=== PATIENT | female | born 1960 | race Caucasian/White ===

== ENCOUNTER 2016-12-11 12:31 | Inpatient (IN) | payer BC ==
[~2016-12-11] VITALS: Ht 170.2 cm; Wt 98.2 kg
[2016-12-11] MEDS ORDERED: ALBUT/IPRATROP 3MG/0.5MG NEB 3 ML VIAL INH STA (12:58)
[2016-12-11] MEDS ORDERED: METHYLPREDNISOLONE 125 MG VIAL IV STA (12:58)
[2016-12-11 13:24] LABS: BASO % 0.2 %; BASO ABS # 0.02 K/uL (0-0.2); COMPLETE YES; EOS % 1.7 %; HEMATOCRIT 44.7 % (37-47); IG% 0.3 %; LYMPH % 33.9 %; LYMPH ABS # 2.92 K/uL (1.2-3.4); MEAN CORPUSCULAR HEMOGLOBIN 32.8 pg (25-34); MEAN CORPUSCULAR HGB CONC 33.8 g/dl (32-36); MEAN PLATELET VOLUME 8.8 fL (7.4-10.4); MONO % 6.7 %; NEUT % 57.2 %; PLATELET COUNT 338 K/uL (130-400); RED BLOOD COUNT 4.61 M/uL (4.2-5.4); WHITE BLOOD COUNT 8.61 K/uL (4.8-10.8)
--- NOTE | 2016-12-11 14:00 | DIAGNOSTIC IMAGING REPORT ---
TWO VIEW CHEST CLINICAL HISTORY: Cough and dyspnea. FINDINGS: PA and lateral chest radiographs are obtained. No prior studies are available for comparison at the time of dictation. The examination is degraded by large body habitus. The right lateral lung base was excluded. The cardiomediastinal silhouette is unremarkable. Nonspecific interstitial thickening is noted. The lungs and pleural spaces are clear. There is no pneumothorax. The skeletal structures are osteopenic. The bony thorax appears intact. Surgical clips are seen in the left axilla. IMPRESSION: No active disease in the chest. Electronically signed by: Parker Núñez M.D. 12/11/2016 1:58 PM Dictated Date/Time: 12/11/2016 1:57 PM
[2016-12-11 14:19] LABS: BUN/CREATININE RATIO 11.2 (10-20); CALCIUM 9.2 mg/dl (8.5-10.1); CREATININE 0.92 mg/dl (0.60-1.20); POTASSIUM 4.1 mmol/L (3.5-5.1)
[2016-12-11] MEDS ORDERED: ALBUT/IPRATROP 3MG/0.5MG NEB 3 ML VIAL INH ONE (14:30)
[2016-12-11] MEDS ORDERED: VNTHFA/IN INH (14:46)
[2016-12-11] MEDS ORDERED: PHEN-905 PO (14:48)
[2016-12-11 15:04] VITALS: PULSE 75; O2SAT 89
[2016-12-11] MEDS ORDERED: ONDANSETRON INJ 2 MG/ML 2 ML VIAL IV PRN (17:15)
[2016-12-11] MEDS ORDERED: MAGNESIUM HYDROXIDE SUSP 30 ML UDC PO PRN (17:15)
[2016-12-11 17:20] VITALS: O2SAT 90; Ht 170.2 cm; Wt 98.2 kg
--- NOTE | 2016-12-11 17:23 | History and Physical ---
History & Physical Date & Time of Service: Dec 11, 2016 at 17:14 Chief Complaint: COUGH Primary Care Physician: Raleigh Wadsworth D.O. History of Present Illness Source: patient, spouse 56 y/o F c/o SOB. Pt has been getting progressively SOB since last or Friday. It was mostly with ambulation prior, but now it is happening at rest at times as well. Her states "you can hear her like a fright train coming". She has had a productive cough. Pt was given an albuterol inhaler in the past when she was dx with "bronchitis" and states that she tried to use this , but it wasn't helping. She states that her and daughter both recently had "bronchitis". No chest pain. She states this is much worse than when she was dx with bronchitis in the past. She has never been hospitalized for her breathing. She has been eating without issue. Pt denies fever, abd pain, n/v/c/d, LE pain or swelling. Pt feels less SOB at rest s/p nebs, steroids, O2. ROS as noted above, otherwise neg. Past Medical/Surgical History Denies current medications or health issues or prior hospitalizations Social History Smoking Status: Current Every Day Smoker (1ppd) Alcohol Use: occasionally Drug Use: none Allergies Coded Allergies: Penicillins (Unverified Allergy, Unknown, DOESN'T REMEMBER, SHE WAS A SMALL CHILD, 12/11/16) Home Medications Scheduled Rtqdbbggagvls-Bvtugpnsor-Bgdki (Nyquil Severe Cold/Flu 5-6.25-10-325 mg/15Ml), 15 ML PO DAILY Scheduled PRN Albuterol Hfa (Ventolin Hfa), 1-2 PUFFS INH Q4H PRN for Shortness of Breath Physical Exam Vital Signs Date Time Temp Pulse Resp B/P Pulse Ox O2 Delivery O2 Flow Rate FiO2 12/11/16 16:13 93 28 155/144 93 Nasal Cannula 4.0 12/11/16 16:12 85 Room Air 12/11/16 15:04 75 18 89 Room Air 12/11/16 14:14 77 16 168/91 90 Room Air 12/11/16 13:29 88 20 161/90 95 Nebulizer 12/11/16 13:10 91 Room Air 12/11/16 12:38 92 Room Air 12/11/16 12:34 36.7 86 22 174/86 91 Room Air General Appearance: WD/WN, no apparent distress Head: normocephalic, atraumatic Respiratory/Chest: no respiratory distress, + wheezing (diffuse, expiratory) Cardiovascular: regular rate, rhythm, no edema Abdomen/GI: non tender, soft Extremities/Musculoskelatal: no calf tenderness, no pedal edema Neurologic/Psych: alert, oriented x 3 Skin: normal color, warm/dry Diagnostics Laboratory Results Results Past 24 Hours Test 12/11/16 13:00 12/11/16 13:10 Range/Units White Blood Count 8.61 4.8-10.8 K/uL Red Blood Count 4.61 4.2-5.4 M/uL Hemoglobin 15.1 12.0-16.0 g/dL Hematocrit 44.7 37-47 % Mean Corpuscular Volume 97.0 80-100 fL Mean Corpuscular Hemoglobin 32.8 25-34 pg Mean Corpuscular Hemoglobin Concent 33.8 32-36 g/dl Platelet Count 338 130-400 K/uL Mean Platelet Volume 8.8 7.4-10.4 fL Neutrophils (%) (Auto) 57.2 % Lymphocytes (%) (Auto) 33.9 % Monocytes (%) (Auto) 6.7 % Eosinophils (%) (Auto) 1.7 % Basophils (%) (Auto) 0.2 % Neutrophils # (Auto) 4.91 1.4-6.5 K/uL Lymphocytes # (Auto) 2.92 1.2-3.4 K/uL Monocytes # (Auto) 0.58 0.11-0.59 K/uL Eosinophils # (Auto) 0.15 0-0.5 K/uL Basophils # (Auto) 0.02 0-0.2 K/uL RDW Standard Deviation 50.6 36.4-46.3 fL RDW Coefficient of Variation 14.2 11.5-14.5 % Immature Granulocyte % (Auto) 0.3 % Immature Granulocyte # (Auto) 0.03 0.00-0.02 K/uL Sodium Level 140 136-145 mmol/L Potassium Level 4.1 3.5-5.1 mmol/L Chloride Level 105 98-107 mmol/L Carbon Dioxide Level 29 21-32 mmol/L Anion Gap 6.0 3-11 mmol/L Blood Urea Nitrogen 10 7-18 mg/dl Creatinine 0.92 0.60-1.20 mg/dl Est Creatinine Clear Calc Drug Dose 81.2 ml/min Estimated GFR () 80.1 Estimated GFR (Non- 69.1 BUN/Creatinine Ratio 11.2 10-20 Random Glucose 101 70-99 mg/dl Calcium Level 9.2 8.5-10.1 mg/dl CXR normal Impression Assessment and Plan 56 y/o F who was admitted on 12/11 for SOB. 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 Y/N: Yes Risk Level: Low
[2016-12-11 17:54] LABS: PARTIAL THROMBOPLASTIN RATIO 1.2; PROTHROMBIN TIME (PATIENT) 10.3 SECONDS (9.0-12.0)
[2016-12-11 18:25] VITALS: BP 151/81; PULSE 94; TEMP 36.8; O2SAT 90
[2016-12-11] MEDS ORDERED: NICOTINE 21 MG/24 HR TDSY TD PRN (19:00)
[2016-12-11 20:00] VITALS: PULSE 80; O2SAT 94
[2016-12-11] MEDS: ALBUT/IPRATROP 3MG/0.5MG NEB 3 ML VIAL INH SCH (20:00)
[2016-12-11 20:01] VITALS: BP 153/93; PULSE 98; TEMP 36.8; O2SAT 92
[2016-12-11] MEDS: ENOXAPARIN 40 MG/0.4 ML SYR SQ SCH (20:55)
[2016-12-11] MEDS ORDERED: NICOTINE 21 MG/24 HR TDSY TD SCH (21:00)
[2016-12-11] MEDS: METHYLPREDNISOLONE IV 40 MG in SYRINGE 0 ML IV SCH (21:04)
--- NOTE | 2016-12-11 21:13 | EMERGENCY ROOM VISIT NOTE ---
History First contact with patient: 12:51 Chief Complaint: COUGH Stated Complaint: COPD Nursing Triage Summary: having breathing troubles since last friday. family had bronchitis recently History of Present Illness The patient is a 56 year old female who presents to the Emergency Room with complaints of difficulty breathing for the past one week. The patient states that she has had a productive cough, wheezing and shortness of breath for the past one week. She states that family members have had bronchitis and she believes this is what is wrong with her. She states she does have inhalers at home and has been using without relief. She has a nebulizer but states she does not have any albuterol for the nebulizer. She smokes over a pack a day but states that she does not have any chronic lung disease. She took 2 days worth of doxycycline, which she had at home from a previous prescription. She denies chest pain, nausea, vomiting or fevers. Review of Systems A complete 10-point Review of Systems was discussed with the patient, with pertinent positives and negatives listed in the History of Present Illness. All remaining Review of Systems questions can be considered negative unless otherwise specified. Past Medical/Surgical History Medical Problems: (1) COPD (chronic obstructive pulmonary disease) Social History Smoking Status: Current Every Day Smoker (1ppd) Drug Use: none Current/Historical Medications Scheduled Nmsrcbsjxxuvb-Vzbrygwtmd-Woati (Nyquil Severe Cold/Flu 5-6.25-10-325 mg/15Ml), 15 ML PO DAILY Scheduled PRN Albuterol Hfa (Ventolin Hfa), 1-2 PUFFS INH Q4H PRN for Shortness of Breath Allergies Coded Allergies: Penicillins (Unverified Allergy, Unknown, DOESN'T REMEMBER, SHE WAS A SMALL CHILD, 12/11/16) Physical Exam Vital Signs Date Time Temp Pulse Resp B/P Pulse Ox O2 Delivery O2 Flow Rate FiO2 12/11/16 17:11 88 17 92 12/11/16 17:06 89 18 89 12/11/16 17:01 98 19 95 12/11/16 16:56 90 21 88 12/11/16 16:51 94 16 89 12/11/16 16:46 93 21 91 12/11/16 16:41 92 35 92 12/11/16 16:39 170/123 12/11/16 16:30 170/123 12/11/16 16:13 93 28 155/144 93 Nasal Cannula 4.0 12/11/16 16:12 85 Room Air 12/11/16 15:04 75 18 89 Room Air 12/11/16 14:14 77 16 168/91 90 Room Air 12/11/16 13:29 88 20 161/90 95 Nebulizer 12/11/16 13:10 91 Room Air 12/11/16 12:38 92 Room Air 12/11/16 12:34 36.7 86 22 174/86 91 Room Air Pain Rating (0-10): 0 Physical Exam VITALS: Vitals are noted on the nurse's note and reviewed by myself. Vital signs stable. GENERAL: This is a 56-year-old female, in no acute distress, nondiaphoretic, well-developed well-nourished. SKIN: Capillary reflex less than 2 seconds. HEENT: Normocephalic. PERRLA. EOMI. Nares patent. Mucous membranes moist. Neck is supple without nuchal rigidity. HEART: Regular rate and rhythm without murmurs gallops or rubs. LUNGS: Diffuse inspiratory and expiratory wheezes. Conversational dyspnea noted. ABDOMEN: Positive bowel sounds x 4. Soft, nontender to palpation. NEURO: Patient was alert and oriented to person place and time. Medical Decision & Procedures ER Provider Diagnostic Interpretation: TWO VIEW CHEST CLINICAL HISTORY: Cough and dyspnea. FINDINGS: PA and lateral chest radiographs are obtained. No prior studies are available for comparison at the time of dictation. The examination is degraded by large body habitus. The right lateral lung base was excluded. The cardiomediastinal silhouette is unremarkable. Nonspecific interstitial thickening is noted. The lungs and pleural spaces are clear. There is no pneumothorax. The skeletal structures are osteopenic. The bony thorax appears intact. Surgical clips are seen in the left axilla. IMPRESSION: No active disease in the chest. Laboratory Results 12/11/16 13:10 Red Blood Count 4.61, Mean Corpuscular Volume 97.0, Mean Corpuscular Hemoglobin 32.8, Mean Corpuscular Hemoglobin Concent 33.8, Mean Platelet Volume 8.8, Neutrophils (%) (Auto) 57.2, Lymphocytes (%) (Auto) 33.9, Monocytes (%) (Auto) 6.7, Eosinophils (%) (Auto) 1.7, Basophils (%) (Auto) 0.2, Neutrophils # (Auto) 4.91, Lymphocytes # (Auto) 2.92, Monocytes # (Auto) 0.58, Eosinophils # (Auto) 0.15, Basophils # (Auto) 0.02 12/11/16 13:10 Test 12/11/16 13:00 12/11/16 13:10 White Blood Count 8.61 K/uL (4.8-10.8) Red Blood Count 4.61 M/uL (4.2-5.4) Hemoglobin 15.1 g/dL (12.0-16.0) Hematocrit 44.7 % (37-47) Mean Corpuscular Volume 97.0 fL (80-100) Mean Corpuscular Hemoglobin 32.8 pg (25-34) Mean Corpuscular Hemoglobin Concent 33.8 g/dl (32-36) Platelet Count 338 K/uL (130-400) Mean Platelet Volume 8.8 fL (7.4-10.4) Neutrophils (%) (Auto) 57.2 % Lymphocytes (%) (Auto) 33.9 % Monocytes (%) (Auto) 6.7 % Eosinophils (%) (Auto) 1.7 % Basophils (%) (Auto) 0.2 % Neutrophils # (Auto) 4.91 K/uL (1.4-6.5) Lymphocytes # (Auto) 2.92 K/uL (1.2-3.4) Monocytes # (Auto) 0.58 K/uL (0.11-0.59) Eosinophils # (Auto) 0.15 K/uL (0-0.5) Basophils # (Auto) 0.02 K/uL (0-0.2) RDW Standard Deviation 50.6 fL (36.4-46.3) RDW Coefficient of Variation 14.2 % (11.5-14.5) Immature Granulocyte % (Auto) 0.3 % Immature Granulocyte # (Auto) 0.03 K/uL (0.00-0.02) Prothrombin Time 10.3 SECONDS (9.0-12.0) Prothromb Time International Ratio 1.0 (0.9-1.1) Activated Partial Thromboplast Time 30.3 SECONDS (21.0-31.0) Partial Thromboplastin Ratio 1.2 Anion Gap 6.0 mmol/L (3-11) Est Creatinine Clear Calc Drug Dose 81.2 ml/min Estimated GFR () 80.1 Estimated GFR (Non- 69.1 BUN/Creatinine Ratio 11.2 (10-20) Calcium Level 9.2 mg/dl (8.5-10.1) Medications Administered Medications (Trade) Dose Ordered Sig/Jorje Route Start Time Stop Time Status Last Admin Dose Admin Albuterol/ Ipratropium (Duoneb) 3 ml NOW STAT INH 12/11/16 12:58 12/11/16 13:01 DC 12/11/16 13:06 3 ML Methylprednisolone Sodium Succinate (Solu-Medrol IV) 125 mg NOW STAT IV 12/11/16 12:58 12/11/16 13:01 DC 12/11/16 13:06 125 MG Albuterol/ Ipratropium (Duoneb) 12 ml ONE ONCE INH 12/11/16 14:30 12/11/16 14:31 DC 12/11/16 15:03 12 ML ED Course The patient was evaluated as above. Labs were drawn and IV access was obtained. Patient was medicated with a DuoNeb treatment and 125 mg Solu-Medrol. Patient was reevaluated and had continued wheezing. She reported very little relief. Patient was given an hour-long DuoNeb. On reevaluation, she still had diffuse wheezing and oxygen saturation was 85% on room air. The patient was placed on 2 L via nasal cannula. Case was discussed with the [facility] hospitalist, Dr. Herring. They agreed to evaluate the patient for admission. Medical Decision Differential diagnosis includes influenza, pneumonia, COPD exacerbation, upper respiratory infection, pulmonary embolism, among others. The patient is a 56-year-old female who presents today complaining of cough and difficulty breathing. Labs revealed no leukocytosis, anemia or concerning electrolyte abnormalities. Influenza was ordered and was pending. Chest x-ray was unremarkable. The patient received an initial DuoNeb treatment as well as an hour-long DuoNeb treatment. She received 125 mg Solu-Medrol IV. She had very little relief from these treatments and continued to have diffuse wheezing. She was hypoxic with an O2 saturation of 85-90% throughout her stay. While the patient does deny any history of COPD, I feel she likely has a component of COPD given her history of heavy smoking. As the patient had continued symptoms and was hypoxic , I did choose to admit her for further evaluation and care. The patient's case was reviewed with Dr. Stevenson, ED attending physician, who agreed with my assessment and treatment plan. Impression Primary Impression: Respiratory distress Additional Impression: Hypoxia Departure Information Dispostion Admitted as an inpatient Condition FAIR Referrals Raleigh Wadsworth D.O. (PCP) Forms HOME CARE DOCUMENTATION FORM, IMPORTANT VISIT INFORMATION Patient Instructions My [facility] Problem Qualifiers
[2016-12-11 23:44] VITALS: BP 192/94; PULSE 89; TEMP 36.7; O2SAT 94
[2016-12-12] VITALS (11 sets, daily range): BP systolic 137–183; BP diastolic 75–116; PULSE 82–96; TEMP 36.4–36.9; O2SAT 90–96
[2016-12-12] MEDS ORDERED: HydrALAZINE HCL 20 MG/ML VIAL ONE (00:24)
[2016-12-12] MEDS: ACETAMINOPHEN 325 MG TAB PO PRN ×2 (04:47→13:05)
[2016-12-12] MEDS ORDERED: PNEUMOCOCCAL ADMINISTRATION CHARGE ONE (05:15)
[2016-12-12] MEDS ORDERED: PNEUMOCOCCAL POLYSACCHARIDES 25 MCG/0.5 ML VIAL/SYR IM. ONE (05:15)
[2016-12-12] MEDS: ALBUT/IPRATROP 3MG/0.5MG NEB 3 ML VIAL INH SCH ×4 (05:55→19:10)
[2016-12-12] MEDS: HydrALAZINE HCL 20 MG/ML VIAL IV. PRN (07:47)
[2016-12-12] MEDS: METHYLPREDNISOLONE IV 40 MG in SYRINGE 0 ML IV SCH (09:04)
--- NOTE | 2016-12-12 19:59 | Progress Note ---
Subjective Date of Service: Dec 12, 2016. Subjective Pt evaluation today including: conversation w/ patient, conversation w/ family , physical exam, chart review, lab review, review of studies, review of inpatient medication list Pain: denies PO Intake: good Voiding: no voiding problems 56-year-old female admitted yesterday with COPD exacerbation. The patient actually does not carry such a diagnosis but her presentation combined with smoking history seemed to suggest that this was a COPD exacerbation. The patient does tell me today that she's had prior upper respiratory infections that have been treated with inhalers, although she does not take inhalers on a routine basis. Today, her breathing is somewhat easier. Unfortunately she has been hypertensive; she blames some of this on the steroids although I suspect there is some underlying hypertension as well. She is not frequent her family physician so there really is no baseline with regards to her blood pressure. Problem List Medical Problems: (1) Hypoxia Status: Acute (2) Respiratory distress Status: Acute Review of Systems Constitutional: No chills, No fever ENT: No nasal symptoms, No sore throat Respiratory: + cough, + wheezing, No dyspnea at rest, No shortness of breath Cardiac: No chest pain Abdomen: No nausea, No pain Female : No dysuria All Other Systems: Reviewed and Negative Objective Vital Signs Date Time Temp Pulse Resp B/P Pulse Ox O2 Delivery O2 Flow Rate FiO2 12/12/16 19:41 89 169/89 12/12/16 19:10 82 18 91 Room Air 12/12/16 16:22 88 18 96 Room Air 3.0 12/12/16 16:00 Room Air 12/12/16 15:10 36.9 93 22 137/75 90 12/12/16 12:00 Room Air 12/12/16 11:59 88 18 96 Room Air 3.0 12/12/16 08:00 Room Air 12/12/16 07:11 36.4 96 22 182/114 91 Room Air 176/116 12/12/16 05:55 86 18 95 Nasal Cannula 3.0 12/12/16 01:39 95 170/95 12/12/16 00:30 91 183/96 12/12/16 00:00 Nasal Cannula 4.0 12/11/16 23:44 36.7 89 18 192/94 94 Nasal Cannula 4.0 12/11/16 20:01 36.8 98 18 153/93 92 Nasal Cannula 5.0 12/11/16 20:00 80 18 94 Nasal Cannula 3.0 Physical Exam General Appearance: WD/WN (she is seated in bed talking to family.), no apparent distress Eyes: normal inspection, PERRL, EOMI ENT: normal ENT inspection, hearing grossly normal Neck: supple, no adenopathy Respiratory/Chest: chest non-tender, no respiratory distress, + pertinent finding (no focal findings. There is some end expiratory wheeze and a prolonged expiratory phase.) Cardiovascular: regular rate, rhythm, no edema, no gallop Abdomen: normal bowel sounds, non tender, soft Extremities: normal range of motion, non-tender, normal inspection Neurologic/Psychiatric: no motor/sensory deficits, alert, normal mood/affect, oriented x 3 Skin: normal color, warm/dry Assessment and Plan 56-year-old female admitted with shortness of breath and likely COPD exacerbation. Shortness of breath with hypoxia COPD exacerbation Patient does not carry this diagnosis, however strongly suggested based on her clinical exam and tobacco abuse history. She seems improved today We'll change to by mouth steroids tomorrow. She'll need probably function test as an outpatient. Hypertension I suspect there is some baseline hypertension exaggerated by the COPD exacerbation and perhaps the IV steroids. Add lisinopril 20 mg this evening Continue hydralazine IV when necessary Tobacco use nicotine patch PRN Smoking cessation ordered Other: Full code Reg diet Lovenox for DVT proph
[2016-12-12] MEDS: LISINOPRIL/HCTZ 10/12.5MG TAB PO SCH (20:51)
[2016-12-12] MEDS: ENOXAPARIN 40 MG/0.4 ML SYR SQ SCH (20:51)
[2016-12-13] VITALS (8 sets, daily range): BP systolic 112–138; BP diastolic 71–82; PULSE 76–84; TEMP 36.6–36.7; O2SAT 90–94
[2016-12-13] MEDS: LISINOPRIL/HCTZ 10/12.5MG TAB PO SCH (07:30)
[2016-12-13] MEDS: NICOTINE 21 MG/24 HR TDSY TD SCH (07:31)
[2016-12-13] MEDS: ALBUT/IPRATROP 3MG/0.5MG NEB 3 ML VIAL INH SCH ×4 (07:45→19:25)
--- NOTE | 2016-12-13 11:39 | Progress Note ---
Subjective Date of Service: Dec 13, 2016. Subjective Pt evaluation today including: conversation w/ patient, physical exam, chart review, review of inpatient medication list Pain: denies PO Intake: good Voiding: no voiding problems This morning she notes some increased difficulty in terms of her breathing. She feels a little tighter and more wheezy compared to last night. Unfortunately her blood pressure is much improved. She did walk down the [place] to the shower last evening and when she returned she noted herself to be short of breath. She denies shortness of breath at rest. She continues to have a cough, largely nonproductive Problem List Medical Problems: (1) Hypoxia Status: Acute (2) Respiratory distress Status: Acute Review of Systems Constitutional: No chills, No fever Respiratory: + cough, + dyspnea on exertion, + shortness of breath, + wheezing , No dyspnea at rest Cardiac: No chest pain Abdomen: No pain Female : No dysuria Endo: No fatigue All Other Systems: Reviewed and Negative Medications Acetaminophen (Tylenol Tab) 650 mg Q4H PRN PO Last administered on 12/12/16 13:05; Admin Dose 650 MG; Start 12/11/16 at 17:15; Stop 01/10/17 at 17:14 Albuterol/ Ipratropium (Duoneb) 3 ml QIDR INH Last administered on 12/13/16 11: 18; Admin Dose 3 ML; Start 12/11/16 at 20:00; Stop 01/10/17 at 19:59 Enoxaparin Sodium (Lovenox Inj) 40 mg Q24H SQ; Start 12/11/16 at 21:00; Stop at 20:59 HCTZ/Lisinopril (Prinzide 10-12.5MG Tab) 1 tab QAM PO Last administered on 07:30; Admin Dose 1 TAB; Start 12/12/16 at 20:00; Stop 01/11/17 at 19:59 Hydralazine HCl (HydrALAZINE INJ) 10 mg Q4H PRN IV. Last administered on 07:47; Admin Dose 10 MG; Start 12/11/16 at 23:45; Stop 01/10/17 at 23:44 Magnesium Hydroxide (Milk Of Magnesia Susp) 30 ml Q6H PRN PO; Start 12/11/16 at 17:15; Stop 01/10/17 at 17:14 Miscellaneous (Remove Nicoderm Patch) 1 ea HS N/A Last administered on 20:51; Admin Dose 1 EA; Start 12/12/16 at 21:00; Stop 01/11/17 at 20:59 Nicotine (Nicoderm Cq 21MG Patch) 1 patch QAM TD Last administered on 12/13/16 07:31; Admin Dose 1 PATCH; Start 12/13/16 at 09:00; Stop 01/12/17 at 08:59 Ondansetron HCl (Zofran Inj) 4 mg Q6H PRN IV; Start 12/11/16 at 17:15; Stop at 17:14 Prednisone (PredniSONE TAB) 40 mg QAM PO Last administered on 12/13/16 07:30; Admin Dose 40 MG; Start 12/13/16 at 09:00; Stop 01/12/17 at 08:59 Objective Vital Signs Date Time Temp Pulse Resp B/P Pulse Ox O2 Delivery O2 Flow Rate FiO2 12/13/16 11:18 82 18 94 Room Air 12/13/16 08:00 90 Room Air 12/13/16 07:45 82 18 94 Room Air 12/13/16 07:29 36.6 76 16 118/71 90 12/13/16 00:06 36.7 79 18 138/82 93 Room Air 12/13/16 00:00 Room Air 12/12/16 23:10 82 18 91 Room Air 12/12/16 20:53 92 147/83 12/12/16 20:00 Room Air 12/12/16 19:41 89 169/89 12/12/16 19:10 82 18 91 Room Air 12/12/16 16:22 88 18 96 Room Air 3.0 12/12/16 16:00 Room Air 12/12/16 15:10 36.9 93 22 137/75 90 12/12/16 12:00 Room Air 12/12/16 11:59 88 18 96 Room Air 3.0 Physical Exam General Appearance: WD/WN, no apparent distress Eyes: normal inspection ENT: normal ENT inspection, hearing grossly normal Neck: supple, no adenopathy, thyroid normal Respiratory/Chest: + wheezing (x-ray for wheezing in all zambrano, in comparison to my exam last evening, overall decreased air movement) Cardiovascular: regular rate, rhythm, no edema Abdomen: normal bowel sounds, non tender, soft Extremities: normal range of motion, non-tender, normal inspection Neurologic/Psychiatric: no motor/sensory deficits, alert, normal mood/affect, oriented x 3 Skin: normal color Assessment and Plan Shortness of breath with hypoxia COPD exacerbation Patient does not carry this diagnosis, however strongly suggested based on her clinical exam and tobacco abuse history. Objective seems a little worse today compared to yesterday. She was feeling better and there is concern that the IV steroids were exacerbating her blood pressure, so decided to change to by mouth steroids this morning. We'll change back to IV steroids; reassess in a.m. She'll need pulmonary function testing as an outpatient. Hypertension Marked improvement with addition of Zestoretic 10/12.5. Check BMP in a.m. Continue hydralazine IV when necessary, especially with resuming of IV steroids Tobacco use nicotine patch PRN Smoking cessation ordered Other: Full code Reg diet Lovenox for DVT proph Continued [facility] stay due to: multiple IV medications needed (needs IV steroids) Discharge planning: home
[2016-12-13] MEDS: ACETAMINOPHEN 325 MG TAB PO PRN (13:33)
[2016-12-13] MEDS: METHYLPREDNISOLONE IV 40 MG in SYRINGE 0 ML IV SCH ×2 (13:35→21:00)
[2016-12-13] MEDS: ENOXAPARIN 40 MG/0.4 ML SYR SQ SCH (19:18)
[2016-12-14] VITALS (11 sets, daily range): BP systolic 130–193; BP diastolic 67–99; PULSE 69–88; TEMP 36.5–36.8; O2SAT 90–95
[2016-12-14] MEDS: ALBUT/IPRATROP 3MG/0.5MG NEB 3 ML VIAL INH SCH ×2 (00:55→07:59)
[2016-12-14] MEDS: METHYLPREDNISOLONE IV 40 MG in SYRINGE 0 ML IV SCH ×3 (05:36→21:28)
[2016-12-14] MEDS: HydrALAZINE HCL 20 MG/ML VIAL IV. PRN (07:32)
[2016-12-14] MEDS: NICOTINE 21 MG/24 HR TDSY TD SCH (07:34)
[2016-12-14 07:35] LABS: BASO % 0.1 %; BASO ABS # 0.01 K/uL (0-0.2); COMPLETE YES; EOS % 0.1 %; HEMATOCRIT 43.5 % (37-47); IG% 0.4 %; LYMPH ABS # 1.72 K/uL (1.2-3.4); MEAN CELL VOLUME 95.6 fL (80-100); MEAN CORPUSCULAR HEMOGLOBIN 32.3 pg (25-34); MEAN CORPUSCULAR HGB CONC 33.8 g/dl (32-36); MEAN PLATELET VOLUME 8.7 fL (7.4-10.4); MONO % 4.6 %; NEUT % 83.8 %; PLATELET COUNT 359 K/uL (130-400); RED BLOOD COUNT 4.55 M/uL (4.2-5.4)
[2016-12-14 07:58] LABS: BUN/CREATININE RATIO 17.5 (10-20); CALCIUM 9.1 mg/dl (8.5-10.1); CREATININE 0.71 mg/dl (0.60-1.20); POTASSIUM 3.7 mmol/L (3.5-5.1)
[2016-12-14] MEDS: LISINOPRIL/HCTZ 10/12.5MG TAB PO SCH (08:15)
--- NOTE | 2016-12-14 09:50 | Family Medicine Progress Note ---
Progress Note Date of Service Dec 14, 2016. Subjective Pt seen and examined at bedside. Overnight, feels that she had significant improvement re: breathing back on the IV steroids but w/ considerable agitation and increase in BP per nursing. This morning, is anxious to be discharged, but feels that she only really turned around after going back on IV steroids. Reports less wheezing and SOB, and is able to ambulate farther now than previous. Nonproductive cough is stable. Reports no fever, CP/palpitations, n/v/ d/c, reflux, CROSS, lightheadedness. Constitutional: No chills, No fatigue, No fever, No sweats Respiratory: + cough, + dyspnea at rest, + dyspnea on exertion, + shortness of breath, + wheezing Cardiovascular: No chest pain, No edema, No palpitations Abdomen: No diarrhea, No nausea, No pain, No vomiting Medications Current Inpatient Medications Medications (Trade) Dose Ordered Sig/Jorje Route Start Time Stop Time Status Last Admin Dose Admin Enoxaparin Sodium (Lovenox Inj) 40 mg Q24H SQ 12/11/16 21:00 01/10/17 20:59 Acetaminophen (Tylenol Tab) 650 mg Q4H PRN PO 12/11/16 17:15 01/10/17 17:14 12/13/16 13:33 650 MG Magnesium Hydroxide (Milk Of Magnesia Susp) 30 ml Q6H PRN PO 12/11/16 17:15 01/10/17 17:14 Ondansetron HCl (Zofran Inj) 4 mg Q6H PRN IV 12/11/16 17:15 01/10/17 17:14 Albuterol/ Ipratropium (Duoneb) 3 ml QIDR INH 12/11/16 20:00 12/14/16 11:59 12/14/16 00:55 3 ML Hydralazine HCl (HydrALAZINE INJ) 10 mg Q4H PRN IV. 12/11/16 23:45 01/10/17 23:44 12/14/16 07:32 10 MG Nicotine (Nicoderm Cq 21MG Patch) 1 patch QAM TD 12/13/16 09:00 01/12/17 08:59 12/14/16 07:34 1 PATCH Miscellaneous (Remove Nicoderm Patch) 1 ea HS N/A 12/12/16 21:00 01/11/17 20:59 12/13/16 19:19 1 EA HCTZ/Lisinopril 1 tab 1 tab QAM PO 12/12/16 20:00 01/11/17 19:59 12/14/16 08:15 1 TAB Methylprednisolone Sodium Succinate/ Syringe (Solu-Medrol IV/ Syringe) 0.64 ml @ 1.5 mls/min Q8 IV 12/13/16 14:00 01/12/17 13:59 12/14/16 05:36 1.5 MLS/MIN Albuterol/ Ipratropium (Combivent Respimat Inh) 1 puffs QID INH 12/14/16 13:00 01/13/17 12:59 Objective Vital Signs Date Time Temp Pulse Resp B/P Pulse Ox O2 Delivery O2 Flow Rate FiO2 12/14/16 08:00 Room Air 12/14/16 07:59 88 18 95 Room Air 12/14/16 07:30 36.5 78 20 193/82 94 12/14/16 00:55 77 16 93 Room Air 12/14/16 00:14 36.8 82 20 168/96 90 Room Air 12/14/16 00:00 Room Air 12/13/16 20:00 Room Air 12/13/16 19:25 84 16 92 Room Air 12/13/16 16:00 Room Air 12/13/16 16:00 79 16 90 Room Air 12/13/16 15:21 36.6 82 16 112/73 90 12/13/16 11:18 82 18 94 Room Air Physical Exam General Appearance: WD/WN, + mild distress (agitation and SOB w/ speaking) Eyes: normal inspection, PERRL, EOMI ENT: normal ENT inspection, hearing grossly normal, pharynx normal Neck: supple, no adenopathy, thyroid normal Respiratory/Chest: chest non-tender, + respiratory distress (mild, more with speaking for extended periods), + decreased breath sounds (throughout, worse at the bases), + wheezing (mostly apical, but w/ decreased BS at bases, so likely too tight to wheeze) Cardiovascular: regular rate, rhythm, no edema, no gallop, no murmur Abdomen: normal bowel sounds, non tender, soft, no organomegaly Laboratory Results 12/14/16 06:55 Red Blood Count 4.55, Mean Corpuscular Volume 95.6, Mean Corpuscular Hemoglobin 32.3, Mean Corpuscular Hemoglobin Concent 33.8, Mean Platelet Volume 8.7, Neutrophils (%) (Auto) 83.8, Lymphocytes (%) (Auto) 11.0, Monocytes (%) (Auto) 4.6, Eosinophils (%) (Auto) 0.1, Basophils (%) (Auto) 0.1, Neutrophils # (Auto) 13.17, Lymphocytes # (Auto) 1.72, Monocytes # (Auto) 0.72, Eosinophils # (Auto) 0.01, Basophils # (Auto) 0.01 12/14/16 06:55 Test 12/14/16 06:55 White Blood Count 15.70 K/uL (4.8-10.8) Red Blood Count 4.55 M/uL (4.2-5.4) Hemoglobin 14.7 g/dL (12.0-16.0) Hematocrit 43.5 % (37-47) Mean Corpuscular Volume 95.6 fL (80-100) Mean Corpuscular Hemoglobin 32.3 pg (25-34) Mean Corpuscular Hemoglobin Concent 33.8 g/dl (32-36) Platelet Count 359 K/uL (130-400) Mean Platelet Volume 8.7 fL (7.4-10.4) Neutrophils (%) (Auto) 83.8 % Lymphocytes (%) (Auto) 11.0 % Monocytes (%) (Auto) 4.6 % Eosinophils (%) (Auto) 0.1 % Basophils (%) (Auto) 0.1 % Neutrophils # (Auto) 13.17 K/uL (1.4-6.5) Lymphocytes # (Auto) 1.72 K/uL (1.2-3.4) Monocytes # (Auto) 0.72 K/uL (0.11-0.59) Eosinophils # (Auto) 0.01 K/uL (0-0.5) Basophils # (Auto) 0.01 K/uL (0-0.2) RDW Standard Deviation 50.7 fL (36.4-46.3) RDW Coefficient of Variation 14.4 % (11.5-14.5) Immature Granulocyte % (Auto) 0.4 % Immature Granulocyte # (Auto) 0.07 K/uL (0.00-0.02) Anion Gap 8.0 mmol/L (3-11) Est Creatinine Clear Calc Drug Dose 105.2 ml/min Estimated GFR () 109.6 Estimated GFR (Non- 94.6 BUN/Creatinine Ratio 17.5 (10-20) Calcium Level 9.1 mg/dl (8.5-10.1) Assessment and Plan 56 y/o female w/ significant smoking hx and suspected COPD w/ acute onset SOB and wheezing SOB w/ hypoxia - likely COPD w/ exacerbation - strongly recommend pulm testing as outpatient - improving - continue IV steroids for at least the morning, may transition tonight - continue duonebs (will need to go out with albuterol neb) HTN - currently on zestoretic 05/29.5, BMP stable - hydralazine IV PRN Tobacco use - continue nicotine patch DVT PPX - lovenox FULL CODE
[2016-12-14] MEDS: ACETAMINOPHEN 325 MG TAB PO PRN ×2 (10:15→15:08)
[2016-12-14] MEDS: IPRATROPIUM BROMIDE/ALBUTEROL respimat INH INH SCH ×3 (13:21→20:52)
[2016-12-14] MEDS: ENOXAPARIN 40 MG/0.4 ML SYR SQ SCH (20:52)
[2016-12-15] VITALS: O2SAT 95
[2016-12-15] MEDS: METHYLPREDNISOLONE IV 40 MG in SYRINGE 0 ML IV SCH (05:58)
[2016-12-15 07:43] VITALS: BP 154/80; PULSE 68; TEMP 36.5; O2SAT 91
[2016-12-15] MEDS: NICOTINE 21 MG/24 HR TDSY TD SCH (07:53)
[2016-12-15] MEDS: LISINOPRIL/HCTZ 10/12.5MG TAB PO SCH (07:53)
[2016-12-15] MEDS: IPRATROPIUM BROMIDE/ALBUTEROL respimat INH INH SCH ×2 (07:55→12:22)
[2016-12-15] MEDS ORDERED: PRED10TA PO (13:37)
[2016-12-15] MEDS ORDERED: LSN/10125 PO (13:37)
[2016-12-15] MEDS ORDERED: ALBINS/ INH (13:37)
[2016-12-15] MEDS ORDERED: IPRA1AER2 INH (13:37)
[2016-12-15] MEDS ORDERED: NCDT21 TD (13:37)
--- NOTE | 2016-12-15 13:42 | Discharge Instructions ---
Discharge Instructions Date of Service Dec 15, 2016. Admission Reason for Admission: COPD Discharge Discharge Diagnosis / Problem: COPD exacerbation Discharge Goals Goal(s): Decrease discomfort, Improve function, Improve disease control Activity Recommendations Activity Limitations: resume your previous activity Stop smoking . Instructions / Follow-Up Instructions / Follow-Up You were admitted to the hospital for low oxygen and difficulty breathing which is due to COPD from your chronic tobacco use. You were given IV steroids in the hospital and transitioned to oral steroid which will need a slow tapering dose (which is provided). You are being sent out with albuterol solution for your breathing machine, as well as an inhaler (combivent) and an albuterol inhaler script. You should use one (and only one) of these three medications every four hours for the next few days as your lungs recover. You should follow up with your primary care doc in the next week. You have been written a script for a nicotine patch. You should remove the patch before bed each night. You should follow up with your primary care for a taper of that patch to aid you in quitting. There is gum available if you need it to help with cravings. DO NOT start smoking in the next week as your lungs are not yet recovered from this and you will get much worse more quickly. While in hospital, you were prescribed a medication to lower your blood pressure. Please take this once daily. It may need adjusting by your regular physician. Please avoid a high salt diet and make sure to keep adequately hydrated. Current Hospital Diet Patient's current hospital diet: Regular Diet Discharge Diet Recommended Diet: AHA Diet (Heart Healthy), Low Sodium Diet (2gm Na) Pending Studies Studies pending at discharge: no Medical Emergencies . Who to Call and When: Medical Emergencies: If at any time you feel your situation is an emergency, please call 911 immediately. . Non-Emergent Contact Non-Emergency issues call your: Primary Care Provider . . "Provider Documentation" section prepared by Albaro Cabrera. . VTE Core Measure Inpt VTE Proph given/why not?: Enoxaparin (Lovenox)SQ
[2016-12-15 13:44] VITALS: BP 148/62; PULSE 68; TEMP 36.5; O2SAT 91
--- NOTE | 2016-12-15 15:47 | Discharge Summary ---
Discharge Summary Date of Service Dec 15, 2016. Discharge Summary Admission Date: Dec 11, 2016 at 17:13 Discharge Date: Dec 15, 2016 Discharge Disposition: Home Principal Diagnosis: COPD w/ acute exacerbation Problems/Secondary Diagnoses: HTN Medication Reconciliation New Medications: Albuterol Sulf (Proventil 0.083% 2.5MG/3ML) 2.5 Mg/3 Ml Nebu 2.5 MG INH Q4H PRN for Wheezing for 30 Days, #1 BOX Prednisone Tab (Prednisone) 10 Mg Tab 10 MG PO DAILY for 14 Days, #47 TAB Hctz/Lisinopril (Lisinopril/Hctz 10/12.5 Mg) 1 Ea Tab 1 TAB PO QAM for 30 Days, #30 TAB Ipratropium-Albuterol (Combivent Respimat) 1 Aer Aer 1 PUFFS INH Q4H PRN for Wheezing, #2 INHALER Nicotine (Nicotine) 1 Patch Tdsy 1 PATCH TD QAM for 14 Days, #14 PATCH Continued Medications: Albuterol Hfa (Ventolin Hfa) 200 Puffs/52885 Mcg Aers 1-2 PUFFS INH Q4H PRN for Shortness of Breath, #1 INHALER Discontinued Medications: Oyymzmfmbpavk-Mjtkzylqzo-Qbbdr (Nyquil Severe Cold/Flu 5-6.25-10-325 mg/15Ml) 1 Liq Liq 15 ML PO DAILY Discharge Exam Pt seen and examined at bedside. After another day of IV steroids, the patient has improved considerably and is resting comfortably in bed without wheezing or SOB. A nonproductive cough persists with long conversation. She states that she feels like she has returned almost to baseline and is comfortable returning home. She reports no fever, CP/palpitations, lightheadedness, headache, paresthesias. Review of Systems: Constitutional: No chills, No fatigue, No fever, No weight loss ENT: No nasal symptoms, No sore throat Respiratory: + cough, + dyspnea on exertion, No shortness of breath, No wheezing Cardiovascular: No PND, No chest pain, No edema, No orthopnea, No palpitations Abdomen: No constipation, No diarrhea, No nausea, No pain Physical Exam: General Appearance: WD/WN, no apparent distress Respiratory/Chest: chest non-tender, no respiratory distress, + decreased breath sounds (throughout, improved from previous), + wheezing (mild scattered wheezing throughout) Cardiovascular: regular rate, rhythm, no edema, no gallop, no murmur Abdomen / GI: normal bowel sounds, non tender, soft, no organomegaly Skin: normal color, warm/dry, no rash Hospital Course Mrs. Restrepo is a 56 y/o female w/ an extensive tobacco use history. She uses an inhaler at home with intermittent regularity. She presented to the hospital with hypoxia and increased work of breathing for which she received Duoneb treatments, IV steroids and supplemental oxygen. Her shortness of breath, wheezing and cough gradually improved and she was transitioned to PO steroids and inhalers with nebulizer treatments at home for discharge. At the time of discharge, she was counseled on several topics: 1) QUIT SMOKING - she was provided with 21mg nicotine patches and a recommendation to follow up with her PCP in order to support quitting her habit. I reinforced the impact this is having on her health and encouraged her to maintain her present streak of not smoking. She agrees to stay quit "at least until [she] feels better". 2) Testing - I recommended outpatient PFT to better assess the extent of her underlying disease and hopefully to start her on some maintenance medications to improve the control of her cough. 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 I have counseled her to remain out of work at least for this week in order to give herself time to recover before re- exposing herself. Additionally, she has cats, one of which sleeps in her bed . I have counseled her on the irritating properties of pet dander exposure and recommended that she keep the cats OUT of the bedroom at all times, as well as to use a humidifier if needed. Additionally, it was noted during this admission that Mrs. Restrepo's blood pressure was elevated. She was asymptomatic, and a Zestoretic tab was started which would bear outpatient monitoring. Total Time Spent: Greater than 30 minutes This includes examination of the patient, discharge planning, medication reconciliation, and communication with other providers. Discharge Instructions Please refer to the electronic Patient Visit Report (Discharge Instructions) for additional information.
== END 2016-12-15 14:21 | disposition home or self-care (01) | DRG 192 ==
LOC: ENRESERVTM → ENRESERVDT → C.EDB 12:33 → C.MED 17:13
PROVIDERS: ADMIT Family Medicine; ATTEND Family Medicine
DX: J44.1 Chronic obstructive pulmonary disease with (acute) exacerbation (principal); I10 Essential (primary) hypertension; F17.200 Nicotine dependence, unspecified, uncomplicated

== ENCOUNTER 2016-12-21 15:41 | Emergency (ER) | payer BC ==
[~2016-12-21] VITALS: Ht 170.2 cm; Wt 100.0 kg
[~2016-12-21 15:41] MED LIST: ALBINS/ INH; IPRA1AER2 INH; LSN/10125 PO; NCDT21 TD; PRED10TA PO; VNTHFA/IN INH
[2016-12-21 15:52] VITALS: TEMP 35.7; O2SAT 92
[2016-12-21] MEDS ORDERED: SODIUM CHLORIDE 0.9% 1000ML 1,000 ML IV STA (16:26)
[2016-12-21] MEDS ORDERED: LORAZEPAM 2 MG/ML 1 ML VIAL IV STA (16:26)
[2016-12-21] MEDS ORDERED: ONDANSETRON INJ 2 MG/ML 2 ML VIAL IV STA (16:26)
--- NOTE | 2016-12-21 16:36 | EMERGENCY ROOM VISIT NOTE ---
History Report prepared by Andra: Angélica Irving Under the Supervision of: Dr. Sameer Wilson M.D. First contact with patient: 16:18 Chief Complaint: CARDIAC ASSESSMENT Stated Complaint: NAUSEA, HEADACHE, NUMBNESS IN EXTREMITES Nursing Triage Summary: Patient arrived via EMS. Patient c/o bilateral frontal headache and bilateral lower back pain on arrival. Pt states "I feel much better now". EMS reports pt was discharged on 12/15 for COPD and asthma; today pt was folding clothes and became diaphoretic, nausesous, dizzy, SOB, had sternal CP, frontal headache, and experienced numbness in bilateral arms and right leg. Patient states "I couldn't pickle pumper my arms they were so heavy". Pt confirms this report. History of Present Illness The patient is a 56 year old female who presents to the Emergency Room with complaints of persistent chest pain starting [employer]. She presents to the ED by EMS. She was sitting folding laundry when her symptoms began. She has never experienced this before. She reports feeling hot, diaphoretic, headache, SOB, numbness in her extremities. She had a normal meal for lunch. She denies any history of cardiac problems. She was discharged from the hospital 1 week ago after being treated for COPD. She has been taking prednisone this week. Source of History: patient Onset: [employer] Position: chest Quality: other (pain) Timing: other (persistent) Associated Symptoms: + SOB, + diaphoresis, + headache, + numbness Note: Pt reports feeling hot. Review of Systems See HPI for pertinent positives & negatives. A total of 10 systems reviewed and were otherwise negative. Past Medical & Surgical Medical Problems: (1) COPD (chronic obstructive pulmonary disease) Family History Cancer Diabetes mellitus Heart disease Hypertension Social History Smoking Status: Current Every Day Smoker Drug Use: none Marital Status: Housing Status: lives with significant other Occupation Status: employed Current/Historical Medications Scheduled Hctz/Lisinopril (Lisinopril/Hctz 10/12.5 Mg), 1 TAB PO QAM Prednisone Tab (Prednisone), 10 MG PO DAILY Scheduled PRN Albuterol Hfa (Ventolin Hfa), 1-2 PUFFS INH Q4H PRN for Shortness of Breath Albuterol Sulf (Proventil 0.083% 2.5MG/3ML), 2.5 MG INH Q4H PRN for Wheezing Ipratropium-Albuterol (Combivent Respimat), 1 PUFFS INH Q4H PRN for Wheezing Lorazepam (Ativan), 0.5 MG PO Q6H PRN for Anxiety/Agitation Allergies Coded Allergies: Penicillins (Unverified Allergy, Unknown, DOESN'T REMEMBER, SHE WAS A SMALL CHILD, 12/21/16) Physical Exam Vital Signs Date Time Temp Pulse Resp B/P Pulse Ox O2 Delivery O2 Flow Rate FiO2 12/21/16 19:27 74 22 124/74 93 12/21/16 18:30 62 19 101/46 12/21/16 18:00 63 18 124/61 12/21/16 17:35 55 20 101/59 93 Room Air 12/21/16 16:55 65 12/21/16 16:45 69 17 98/58 93 Room Air 12/21/16 15:52 93 Room Air 12/21/16 15:52 35.7 62 21 102/54 92 Room Air 12/21/16 15:52 92 Room Air Physical Exam GENERAL: Patient is a healthy-appearing well-nourished, hyperventilating on exam. HEAD: Normocephalic atraumatic EYES: Ocular movements intact pupils equal and react to light OROPHARYNX mucous membranes are moist no exudates present no erythema or edema present NECK: Supple no nuchal rigidity CHEST: Good equal expansion LUNGS: Clear and equal to auscultation CARDIAC: Normal S1 and S2 ABDOMEN: Soft nontender no guarding BACK: No CVA tenderness EXTREMITIES: No pain upon palpation normal muscle strength in all groups no clubbing cyanosis or edema NEURO: Patient is following commands is answering questions appropriately. Alert and oriented x3 Cranial Nerves 2-12 grossly intact Medical Decision & Procedures ER Provider Diagnostic Interpretation: X-ray results as stated below per interpretation by me and the radiologist. Radiology results as stated below per my review and radiologist interpretation: CHEST ONE VIEW PORTABLE CLINICAL HISTORY: Pt c/o SOB COMPARISON STUDY: 12/11/2016 FINDINGS: Slight chronic interstitial prominence. No focal infiltrate. Diaphragms smooth. IMPRESSION: Chronic change. No acute process. Electronically signed by: Amadou Otto M.D. 12/21/2016 5:00 PM Dictated Date/Time: 12/21/2016 5:[address] NON[address]AST CT DOSE: 773.57 mGy.cm HISTORY: Pt c/o severe granda TECHNIQUE: Multiaxial CT images of the head were performed without the use of intravenous contrast. Comparison: None. Findings: The paranasal sinuses and mastoid air cells are clear. The calvarium and skull base are intact. The ventricles and sulci are within normal limits. There is no mass, hematoma, midline shift, or acute infarct. Impression: No acute intracranial abnormality. Subcutaneous nodule posterior to the occipital bones. Electronically signed by: Amadou Otto M.D. 12/21/2016 5:28 PM Dictated Date/Time: 12/21/2016 5:26 PM Laboratory Results 12/21/16 15:02 Red Blood Count 4.38, Mean Corpuscular Volume 95.7, Mean Corpuscular Hemoglobin 32.4, Mean Corpuscular Hemoglobin Concent 33.9, Mean Platelet Volume 9.4, Neutrophils (%) (Auto) 67.8, Lymphocytes (%) (Auto) 22.5, Monocytes (%) (Auto) 8.3, Eosinophils (%) (Auto) 0.5, Basophils (%) (Auto) 0.1, Neutrophils # (Auto) 13.58, Lymphocytes # (Auto) 4.50, Monocytes # (Auto) 1.65, Eosinophils # (Auto) 0.09, Basophils # (Auto) 0.01 12/21/16 15:02 Test 12/21/16 15:02 White Blood Count 19.99 K/uL (4.8-10.8) Red Blood Count 4.38 M/uL (4.2-5.4) Hemoglobin 14.2 g/dL (12.0-16.0) Hematocrit 41.9 % (37-47) Mean Corpuscular Volume 95.7 fL (80-100) Mean Corpuscular Hemoglobin 32.4 pg (25-34) Mean Corpuscular Hemoglobin Concent 33.9 g/dl (32-36) Platelet Count 363 K/uL (130-400) Mean Platelet Volume 9.4 fL (7.4-10.4) Neutrophils (%) (Auto) 67.8 % Lymphocytes (%) (Auto) 22.5 % Monocytes (%) (Auto) 8.3 % Eosinophils (%) (Auto) 0.5 % Basophils (%) (Auto) 0.1 % Neutrophils # (Auto) 13.58 K/uL (1.4-6.5) Lymphocytes # (Auto) 4.50 K/uL (1.2-3.4) Monocytes # (Auto) 1.65 K/uL (0.11-0.59) Eosinophils # (Auto) 0.09 K/uL (0-0.5) Basophils # (Auto) 0.01 K/uL (0-0.2) RDW Standard Deviation 50.7 fL (36.4-46.3) RDW Coefficient of Variation 14.4 % (11.5-14.5) Immature Granulocyte % (Auto) 0.8 % Immature Granulocyte # (Auto) 0.16 K/uL (0.00-0.02) Anion Gap 8.0 mmol/L (3-11) Est Creatinine Clear Calc Drug Dose 68.6 ml/min Estimated GFR () 64.5 Estimated GFR (Non- 55.7 BUN/Creatinine Ratio 19.0 (10-20) Calcium Level 8.3 mg/dl (8.5-10.1) Total Bilirubin 0.2 mg/dl (0.2-1) Direct Bilirubin mg/dl (0-0.2) Aspartate Amino Transf (AST/SGOT) 10 U/L (15-37) Alanine Aminotransferase (ALT/SGPT) 36 U/L (12-78) Alkaline Phosphatase 57 U/L (45-117) Total Creatine Kinase 48 U/L (26-192) Creatine Kinase MB 1.0 ng/ml (0.5-3.6) Creatine Kinase MB Ratio 2.1 (0-3.0) Troponin I < 0.015 ng/ml (0-0.045) Total Protein 6.1 gm/dl (6.4-8.2) Albumin 3.2 gm/dl (3.4-5.0) Thyroid Stimulating Hormone (TSH) 5.360 uIu/ml (0.300-4.500) Chemistry Specimen Hemolysis Labs reviewed by ED physician. Medications Administered Medications (Trade) Dose Ordered Sig/Jorje Route Start Time Stop Time Status Last Admin Dose Admin Sodium Chloride (Nss 1000ml) 1,000 ml @ 999 mls/hr Q1H1M STAT IV 12/21/16 16:26 12/21/16 17:26 DC 12/21/16 16:49 999 MLS/HR Lorazepam (Ativan Inj) 1 mg NOW STAT IV 12/21/16 16:26 12/21/16 16:28 DC 12/21/16 16:49 1 MG Ondansetron HCl (Zofran Inj) 4 mg NOW STAT IV 12/21/16 16:26 12/21/16 16:28 DC 12/21/16 16:49 4 MG Acetaminophen (Tylenol Tab) 1,000 mg NOW STAT PO 12/21/16 16:43 12/21/16 16:44 DC 12/21/16 16:50 1,000 MG Lorazepam (Ativan 1MG Home Pack) 1 homepack UD ONCE PO 12/21/16 19:15 12/21/16 19:16 DC 12/21/16 19:18 1 HOMEPACK ECG Indication: SOB/dyspnea Rate (beats per minute): 61 Rhythm: normal sinus Findings: no acute ischemic change, no ectopy ED Course 162: Past medical records reviewed. The patient was evaluated in room C4. A complete history and physical examination was performed. 1626: Zofran Inj 4 mg IV, Lorazepam 1 mg IV, NSS 1000 ml @ 999 mls/hr IV. 1643: Acetaminophen 1000 mg PO. 1752: Nicotine 1 patch TD. 1900: Upon reexamination the patient is resting comfortably. I discussed results and treatment plan with the patient. She verbalizes agreement and understanding. The patient is ready for discharge. 5: Lorazepam 1 homepack PO. Medical Decision This is a 56-year-old female who presents emergency department actively hyperventilating. The patient has multiple complaints including headache loss of vision feeling like she is going to pass out and bilateral numbness and tingling to her hands and feet. The patient recently gave up smoking and had been on nicotine patch however stopped taking nicotine patch. In addition she is also on prednisone which I believe are explain her high white blood count. In the emergency department the patient was coached on her breathing and given normal saline bolus along with Ativan. Repeat examination revealed total improvement in the patient's symptoms. I do believe that the patient was hyperventilating she had just quit her job today and in addition stop smoking and is on prednisone. I believe these all contributed to her panic attack. She was given a short supply of Ativan and was told to follow-up with her primary care physician. Patient was in agreement with the treatment plan. Impression Primary Impression: Hyperventilation Scribe Attestation The scribe's documentation has been prepared under my direction and personally reviewed by me in its entirety. I confirm that the note above accurately reflects all work, treatment, procedures, and medical decision making performed by me. Departure Information Dispostion Home / Self-Care Prescriptions Lorazepam (ATIVAN) 1 Mg Tab 0.5 MG PO Q6H Y for Anxiety/Agitation, #6 TAB Prov: Sameer Wilson MD 12/21/16 Referrals Raleigh Wadsworth D.O. (PCP) Forms IMPORTANT VISIT INFORMATION Patient Instructions ED Hyperventilation Syndrome, My [facility] Additional Instructions Follow up with DR Weston's office You have been examined and treated today on an emergency basis only. This is not a substitute for, or an effort to provide, complete comprehensive medical care. It is impossible to recognize and treat all injuries or illnesses in a single emergency department visit. It is therefore important that you follow up closely with Dr Wadsworth. Call as soon as possible for an appointment. Thank you for your time and consideration. I look forward to speaking with you again soon. Please don't hesitate to call us if you have any questions.
[2016-12-21 16:38] VITALS: Ht 170.2 cm; Wt 100.0 kg
[2016-12-21 16:39] LABS: BASO % 0.1 %; BASO ABS # 0.01 K/uL (0-0.2); COMPLETE YES; EOS % 0.5 %; HEMATOCRIT 41.9 % (37-47); IG% 0.8 %; LYMPH % 22.5 %; MEAN CELL VOLUME 95.7 fL (80-100); MEAN CORPUSCULAR HEMOGLOBIN 32.4 pg (25-34); MEAN CORPUSCULAR HGB CONC 33.9 g/dl (32-36); MEAN PLATELET VOLUME 9.4 fL (7.4-10.4); MONO % 8.3 %; NEUT % 67.8 %; PLATELET COUNT 363 K/uL (130-400); RED BLOOD COUNT 4.38 M/uL (4.2-5.4); WHITE BLOOD COUNT 19.99 K/uL (4.8-10.8)
[2016-12-21] MEDS ORDERED: ACETAMINOPHEN 500 MG TAB PO STA (16:43)
[2016-12-21 16:58] LABS: ALKALINE PHOSPHATASE 57 U/L (45-117); ALT/SGPT 36 U/L (12-78); AST/SGOT 10 U/L (15-37); BLOOD UREA NITROGEN 21 mg/dl (7-18); CALCIUM 8.3 mg/dl (8.5-10.1); CARBON DIOXIDE 30 mmol/L (21-32); CHLORIDE 100 mmol/L (98-107); CKMB/CK RATIO 2.1 (0-3.0); GLUCOSE 140 mg/dl (70-99); POTASSIUM 4.4 mmol/L (3.5-5.1); SODIUM 138 mmol/L (136-145)
--- NOTE | 2016-12-21 17:02 | DIAGNOSTIC IMAGING REPORT ---
CHEST ONE VIEW PORTABLE CLINICAL HISTORY: Pt c/o SOB COMPARISON STUDY: 12/11/2016 FINDINGS: Slight chronic interstitial prominence. No focal infiltrate. Diaphragms smooth. IMPRESSION: Chronic change. No acute process. Electronically signed by: Amadou Otto M.D. 12/21/2016 5:00 PM Dictated Date/Time: 12/21/2016 5:00 PM
--- NOTE | 2016-12-21 17:29 | DIAGNOSTIC IMAGING REPORT ---
HEAD CT NONCONTRAST CT DOSE: 773.57 mGy.cm HISTORY: Pt c/o severe granda TECHNIQUE: Multiaxial CT images of the head were performed without the use of intravenous contrast. Comparison: None. Findings: The paranasal sinuses and mastoid air cells are clear. The calvarium and skull base are intact. The ventricles and sulci are within normal limits. There is no mass, hematoma, midline shift, or acute infarct. Impression: No acute intracranial abnormality. Subcutaneous nodule posterior to the occipital bones. Electronically signed by: Amadou Otto M.D. 12/21/2016 5:28 PM Dictated Date/Time: 12/21/2016 5:26 PM
[2016-12-21] MEDS ORDERED: NICOTINE 21 MG/24 HR TDSY TD STA (17:52)
[2016-12-21] MEDS ORDERED: ATV/1 PO (19:03)
[2016-12-21] MEDS ORDERED: ATIVAN 1MG HOMEPACK PO ONE (19:15)
[2016-12-21 19:27] VITALS: BP 124/74; PULSE 74; O2SAT 93
== END 2016-12-21 19:32 | disposition home or self-care (01) ==
LOC: EDBD 15:41 → C.EDC 15:42
DX: R06.4 Hyperventilation (principal); Z83.3 Family history of diabetes mellitus; Z82.49 Family history of ischemic heart disease and other diseases of the circulatory system; F17.200 Nicotine dependence, unspecified, uncomplicated